=== PATIENT | male | born 1980 | race Caucasian/White ===

== ENCOUNTER 2017-09-13 07:40 | Emergency (ER) | payer OTHER ==
[~2017-09-13] VITALS: Ht 175.3 cm; Wt 68.0 kg
[~2017-09-13 07:40] MED LIST: ALLEGRA ALLERG180 MG PO; CLARINEX5 MG/TAB PO; MUCINEX COLD &177 ML PO; PROVENTIL3 ML/2.5 M IH; SINGULAIR10 MG PO; TESSALON PERLE100 MG PO; ZYNCOF 20-400120 ML PO
[2017-09-13] MEDS ORDERED: XANAX0.25 MG PO (13:32)
== END 2017-09-13 13:53 | disposition home or self-care (01) ==
LOC: ER 07:40 → CPU-OBS 07:53 → ER 13:53
DX: R07.89 Other chest pain (principal)
CPT/HCPCS: G0378; G0379; 93005

== ENCOUNTER 2018-10-31 10:56 | Outpatient (CLI) | payer OTHER ==
[~2018-10-31 10:56] MED LIST changes: +XANAX0.25 MG PO
== END 2018-10-31 11:11 | disposition home or self-care (01) ==
LOC: LAB 10:56
DX: J11.1 Influenza due to unidentified influenza virus with other respiratory manifestations (principal); J11.81 Influenza due to unidentified influenza virus with encephalopathy